=== PATIENT | female | born 1950 | race American Indian/Alaskan Native ===

== ENCOUNTER 2019-01-07 09:23 | Outpatient (CLI) | payer BC, MEDICARE ==
--- NOTE | 2019-01-07 10:53 | Vascular Lab Report ---
DUPLEX DOPPLER LOWER EXTREMITY VEINS, LEFT INDICATION: LEFT LOWER EXTREMITY EDEMA. TECHNIQUE: Duplex doppler imaging was performed through the veins of the left lower extremity using venous compression and other maneuvers. COMPARISON: No relevant prior imaging study available. FINDINGS: Left Common femoral vein: Negative. Left Superficial femoral vein: Negative. Left Popliteal vein: Negative. Left Calf veins: Negative. Additional findings: None.. IMPRESSION: No sonographic evidence for DVT in the left lower extremity. Signer Name: Julio Friend Jr, MD Signed: 01/07/2019 10:49 AM Workstation Name: [id number]
== END 2019-01-07 09:24 | disposition home or self-care (01) ==
LOC: VAS 09:23
PROVIDERS: ATTEND Podiatrist Foot Surgery
DX: R60.0 Localized edema (principal); I10 Essential (primary) hypertension

== ENCOUNTER 2020-07-23 14:05 | Outpatient (CLI) | payer MEDICARE, OTHER ==
--- NOTE | 2020-07-24 14:22 | Mammography Report ---
DIGITAL SCREENING MAMMOGRAM WITH CAD, 07/23/2020 CLINICAL INFORMATION / INDICATION: Routine screening mammography. TECHNIQUE: Digital bilateral 2D mammography was obtained in the craniocaudal and mediolateral obliqu e projections. This examination was interpreted with the benefit of Computer-Aided Detection analysis . COMPARISON: 09/10/2015,, 05/03/2014, 04/22/2013 FINDINGS: Breast Density: The breasts are almost entirely fatty. No dominant mass, suspicious calcifications, or architectural distortion in either breast. IMPRESSION: No mammographic evidence of malignancy. Follow up recommendation: Routine yearly BI-RADS Category 1: Negative. A "normal" or negative report should not discourage follow up or biopsy of a clinically significant f inding. A written summary of these findings will be mailed to the patient. The patient will be entered into a mammography reporting system which will generate a reminder letter for the patient's next appointmen t at the appropriate interval. The [employer] recommends yearly mammograms starting at age 40 and continuing as l sreedhar as a woman is in good health. Breast MRI is recommended for women with an approximate 20-25% or greater lifetime risk of breast cancer, including women with a strong family history of breast or ova shahid cancer or who have been treated for Hodgkin's disease. Signer Name: Karl White MD Signed: 07/24/2020 2:13 PM Workstation Name: [email or web address]
== END 2020-07-23 14:06 | disposition home or self-care (01) ==
LOC: SPVWC 14:05
PROVIDERS: ATTEND Family Medicine
DX: Z12.31 Encounter for screening mammogram for malignant neoplasm of breast (principal)
CPT/HCPCS: 77067